=== PATIENT | male | born 1970 | race Caucasian/White ===

== ENCOUNTER 2023-08-28 01:57 | Emergency (ER) | payer OTHER ==
[~2023-08-28] VITALS: Ht 188 cm; Wt 122.9 kg
[~2023-08-28 01:57] MED LIST: CEPHALEXIN500 M1 PO; IBUPROFEN800 MG PO; NORCO 5-325 TA1 EACH PO
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
[2023-08-28 03:17] VITALS: BP 135/79
== END 2023-08-28 03:18 | disposition home or self-care (01) ==
LOC: ED 01:57
DX: S61.012A Laceration without foreign body of left thumb without damage to nail, initial encounter (principal); W26.0XXA Contact with knife, initial encounter
CPT/HCPCS: 12002; 99283

== ENCOUNTER 2025-01-26 10:24 | Emergency (ER) | payer OTHER ==
[~2025-01-26] VITALS: Ht 188 cm; Wt 100.4 kg
[~2025-01-26 10:24] MED LIST changes: +AMOXICILLIN500 MG PO
--- OUTSIDE RECORDS SUMMARY | 2025-01-26 10:31 | XMS ---
PreManage Notification: KIMMIE MELARA Security F[employer] Events No recent Security Events currently on file CRITERIA MET - Group Notification CARE PROVIDERS -, [facility] Dentist: [facility]keeper [facility] PHONE: [phone] -Rohan- Dentist: Beekeeper [facility] PHONE: [phone] DEENA BENZ Current PHONE: [phone] Garrett has no Care Guidelines for this patient. E.Pito VISIT COUNT (12 MO.) 1 [facility] TOTAL 1 NOTE: Visits indicate total known visits. ED/UCC VISIT TRACKING (12 MO.) 01/26/2025 10:25 [facility] [place] TYPE: Emergency COMPLAINT: - WITHDREWS INPATIENT VISIT TRACKING (12 MO.) No inpatient visits to display in this time frame [email or web address]
[2025-01-26] MEDS ORDERED: GABAPENTIN300 MG PO (11:22)
[2025-01-26 11:26] VITALS: BP 114/67
== END 2025-01-26 11:26 | disposition home or self-care (01) ==
LOC: ED 10:24
DX: F10.939 Alcohol use, unspecified with withdrawal, unspecified (principal); F10.91 Alcohol use, unspecified, in remission
CPT/HCPCS: 99283